=== PATIENT | male | born 1995 | race Caucasian/White ===

== ENCOUNTER 2019-04-18 16:43 | Emergency (ER) | payer OTHER ==
[~2019-04-18] VITALS: Ht 177.8 cm; Wt 95.3 kg
--- NOTE | 2019-04-18 17:35 | RAD ---
CT HEAD WO CONTRAST History: Head injury Comparison: None. Technique: Noncontrast CT imaging was performed of the head. Exposure: One or more of the following individualized dose reduction techniques were utilized for this examination: 1. Automated exposure control 2. Adjustment of the mA and/or kV according to patient size 3. Use of iterative reconstruction technique. Findings: No acute extra-axial or parenchymal hemorrhage is identified. There is no significant intra-axial mass effect, midline shift, or extra-axial fluid collection. The dunbar-white differentiation of the major vascular territories is preserved. The ventricles, sulci, and cisterns are within normal limits in size and configuration. The mastoid air cells and the visualized paranasal sinuses are aerated. No acute calvarial abnormality is identified. Impression: 1. No acute intracranial abnormality is identified. Electronically signed by: Justin Mae MD (04/18/2019 5:32 PM) [facility]
--- NOTE | 2019-04-18 18:16 | PHYS DOC ---
Past Medical History Past Medical History: Other Additional Past Medical Histor: ADD,MULTIPLE CONCUSSIONS Past Surgical History: No Surgical History Alcohol Use: Rarely Drug Use: None Adult General Chief Complaint Chief Complaint: TRAUMA ALERT head injury [facility] HPI Patient is a 24 year old male who presents with complaining of head injury. Patient states he had [id number] collision while playing rugby without wearing a helmet. Patient denies loss of consciousness and complaining of pain and laceration of left side of his scalp and rated his pain as a moderate pain. Patient denies focal neurodeficit and other injuries. Patient is up-to-date with his tetanus immunization. Review of Systems Review of Systems Constitutional: Denies fever or chills [] Eyes: Denies change in visual acuity, redness, or eye pain [] HENT: Denies nasal congestion or sore throat [] Respiratory: Denies cough or shortness of breath [] Cardiovascular: No additional information not addressed in HPI [] GI: Denies abdominal pain, nausea, vomiting, bloody stools or diarrhea [] : Denies dysuria or hematuria [] Musculoskeletal: Denies back pain or joint pain [] Integument: Denies rash or skin lesions [] Neurologic: Reports headache, denies focal weakness or sensory changes [] Endocrine: Denies polyuria or polydipsia [] All other systems were reviewed and found to be within normal limits, except as documented in this note. Allergies Allergies Allergies Coded Allergies Type Severity Reaction Last Updated Verified No Known Drug Allergies 04/18/19 No Physical Exam Physical Exam Constitutional: Well developed, well nourished, mild distress, non-toxic appearance. [] HENT: Normocephalic, 3 cm linear laceration in left parietal scalp with mild bleeding, small operation of left cheek and left lateral side of eye contusion, bilateral external ears normal, oropharynx moist, no oral exudates, nose normal. [] Eyes: PERRLA, EOMI, conjunctiva normal, no discharge. [] Neck: Normal range of motion, no tenderness, supple, no stridor. [] Cardiovascular:Heart rate regular rhythm, no murmur [] Lungs & Thorax: Bilateral breath sounds clear to auscultation [] Abdomen: Bowel sounds normal, soft, no tenderness, no masses, no pulsatile masses. [] Skin: Warm, dry, no erythema, no rash. [] Back: No tenderness, no CVA tenderness. [] Extremities: No tenderness, no cyanosis, no clubbing, ROM intact, no edema. [] Neurologic: Alert and oriented X 3, normal motor function, normal sensory function, no focal deficits noted. [] Psychologic: Affect normal, judgement normal, mood normal. [] Current Patient Data Vital Signs Vital Signs Date Time Temp Pulse Resp B/P (MAP) Pulse Ox O2 Delivery O2 Flow Rate FiO2 04/18/19 18:30 79 16 151/87 (108) 96 04/18/19 18:28 Room Air 04/18/19 17:00 99.3 99.3 EKG EKG [][facility] [address] [place], [place] [id number] IMAGING REPORT Signed PATIENT: JOSS RAHMAN AACCOUNT: [id number] : 1995 LOCATION: ER AGE: 24 SEX: M EXAM STATUS: PRE ER ORD. PHYSICIAN: JARRET HALL MD REASON: head injury PROCEDURE: CT HEAD WO CONTRAST CT HEAD WO CONTRAST History: Head injury Comparison: None. Technique: Noncontrast CT imaging was performed of the head. Exposure: One or more of the following individualized dose reduction techniques were utilized for this examination: 1. Automated exposure control 2. Adjustment of the mA and/or kV according to patient size 3. Use of iterative reconstruction technique. Findings: No acute extra-axial or parenchymal hemorrhage is identified. There is no significant intra-axial mass effect, midline shift, or extra-axial fluid collection. The dunbar-white differentiation of the major vascular territories is preserved. The ventricles, sulci, and cisterns are within normal limits in size and configuration. The mastoid air cells and the visualized paranasal sinuses are aerated. No acute calvarial abnormality is identified. Impression: 1. No acute intracranial abnormality is identified. Electronically signed by: Odessa Mae MD (04/18/2019 5:32 PM) [facility] DICTATED and SIGNED BY: ODESSA MAE MD DATE: 04/18/19 8118 Radiology/Procedures Radiology/Procedures [] Course & Med Decision Making Course & Med Decision Making Pertinent Imaging studies reviewed. (See chart for details) Evaluation of patient in ER showed 24-year-old male patient with head injury during playing sports with scalp laceration with unremarkable physical exam and CT of head sepsis for scalp laceration. Laceration was repaired with rosemarie without problem. Patient did not want pain medication in ER. Plan discharge patient home with diagnose of head injury and a scalp laceration. 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 Dragon Disclaimer Dragon Disclaimer This electronic medical record was generated, in whole or in part, using a voice recognition dictation system. Departure Departure Impression: Primary Impression: Head injury Additional Impressions: Scalp laceration Facial contusion Disposition: HOME, SELF-CARE Condition: IMPROVED Referrals: VERONIKA FRANCISCO (PCP) Patient Instructions: Facial or Scalp Contusion, Head Injury, Adult, Staple Wound Closure, [id number] Additional Instructions: Drink plenty of liquids Follow-up with your primary care physician in 3-5 days Return to ER if not getting better Do not play sports until seen by concussion specialist or your green jobs trainer Staple removal in 7 days Laceration Repair Lac Repair Indication: Parietal calp laceration Procedure: The patient was placed in the appropriate position. The area was then cleaned. The laceration was repaired with 4 rosemarie. Total repaired wound length: 3 cm Other Items: none The patient tolerated the procedure well. Complications: None. Problem Qualifiers Primary Impression: Head injury Encounter type: initial encounter Qualified Codes: S09.90XA - Unspecified injury of head, initial encounter Additional Impressions: Scalp laceration Encounter type: sequela Qualified Codes: S01.01XS - Laceration without foreign body of scalp, sequela Facial contusion Encounter type: sequela Qualified Codes: S00.83XS - Contusion of other part of head, sequela JARRET HALL MD Apr 18, 2019 18:16
[2019-04-18 18:30] VITALS: BP 151/87
== END 2019-04-18 18:42 | disposition home or self-care (01) ==
LOC: ER 16:43
DX: S01.01XA Laceration without foreign body of scalp, initial encounter (principal); R51 Headache; W52.XXXA Crushed, pushed or stepped on by crowd or human stampede, initial encounter; Y93.63 Activity, rugby; Y92.89 Other specified places as the place of occurrence of the external cause; Y99.8 Other external cause status
CPT/HCPCS: 12002; 70450; 99285-25